=== PATIENT | female | born 1970 | race African-American/Black ===

== ENCOUNTER 2022-08-25 06:30 | Day surgery (SDC) | payer BC ==
[~2022-08-25] VITALS: Ht 170.2 cm; Wt 110.2 kg
[~2022-08-25 06:30] MED LIST: AUGMENTIN875TAB OR; DIFLUCAN150 MG OR; EFFEXOR75 MG OR; FERROUS SULFAT325 MG PO; IBUPROFEN600 MG PO; LORTAB 5 OR; LORTAB 7.5-3251 TAB PO; MEDDOSEPAK OR; METFORMIN HCL500 M1 PO; NAPROSYN500 MG OR; NO; OMEPRAZOLE DR40 MG PO; THERAFL OR; VITAMIN B-225 MG PO; ZOCOR20 M1 PO
[2022-08-25 08:40] VITALS: BP 147/89
== END 2022-08-25 08:47 | disposition home or self-care (01) | DRG 951 ==
LOC: ENDO 06:30
PROVIDERS: ATTEND Surgery
PROC: 0DBL8ZX Excision of Transverse Colon, Via Natural or Artificial Opening Endoscopic, Diagnostic (ICD-10-PCS; principal; 2022-08-25)
DX: Z12.11 Encounter for screening for malignant neoplasm of colon (principal); D12.3 Benign neoplasm of transverse colon; K64.8 Other hemorrhoids; E11.9 Type 2 diabetes mellitus without complications; K21.9 Gastro-esophageal reflux disease without esophagitis; Z79.84 Long term (current) use of oral hypoglycemic drugs

== ENCOUNTER 2023-11-25 09:19 | Emergency (ER) | payer BC ==
[2023-11-25] VITALS (14 sets, daily range): BP systolic 106–176; BP diastolic 66–125
[~2023-11-25] VITALS: Ht 170.2 cm; Wt 110.2 kg
[2023-11-25] MEDS ORDERED: BUPIVACAINE HCL PF 0.5 % 50 MG/10 ML SDV IJ ONE (09:30)
[2023-11-25] MEDS ORDERED: DOXYCYCLINE100 MG PO (09:32)
[2023-11-25] MEDS ORDERED: Diph, Acellular Pertussis, Tet 0.5 ML/VIAL (Tdap) SDV IM ONE (12:15)
== END 2023-11-25 12:30 | disposition home or self-care (01) | DRG 603 ==
LOC: ED 09:19
PROC: 0H9FXZZ Drainage of Right Hand Skin, External Approach (ICD-10-PCS; principal; 2023-11-25)
DX: L03.011 Cellulitis of right finger (principal)

== ENCOUNTER 2024-05-12 21:23 | Emergency (ER) | payer BC ==
[~2024-05-12] VITALS: Ht 170.2 cm; Wt 111.0 kg
[~2024-05-12 21:23] MED LIST changes: +DOXYCYCLINE100 MG PO
[2024-05-12 21:37] VITALS: BP 147/75
[2024-05-12] MEDS ORDERED: KETOROLAC TROMETHAMINE 30 MG/ML SDV IV ONE (21:40)
[2024-05-12 22:15] LABS: BASO% 0.1 % (0-3); EOS% 0.2 % (0-8); HEMATOCRIT 41.3 % (37.0-47.0); HEMOGLOBIN 12.5 g/dl (12.0-16.0); IMMATURE GRANULOCYTES 0.1 % (0.0-5.0); LYMPH% 8.7 % (15-41); MEAN CELL VOLUME 84.6 fL CALC (80.0-100.0); MEAN CORPUSCULAR HGB 25.6 pG CALC (26.0-32.0); MEAN CORPUSCULAR HGB CONC 30.3 g/dL CAL (32.0-36.0); MONO% 3.9 % (2-13); NEUT# 9.45 thou/uL (2.00-7.15); RED BLOOD COUNT 4.88 mill/uL (4.20-5.60); RED CELL DISTRI WIDTH 14.4 % (11.5-15.5)
[2024-05-12 22:26] LABS: ALBUMIN 4.4 g/dL (3.2-5.0); BILIRUBIN, TOTAL 0.4 mg/dL (0.02-1.3); CREATININE 0.6 mg/dL (0.5-1.0); POTASSIUM 3.6 mmol/l (3.5-5.1); TOTAL PROTEIN 7.9 g/dL (6.3-8.2)
[2024-05-12 22:46] VITALS: BP 151/71
[2024-05-12 22:56] LABS: URINE BILIRUBIN - DIPSTICK Negative (NEGATIVE); URINE BLOOD DIPSTICK Moderate (NEGATIVE); URINE GLUCOSE - DIPSTICK >=1000 mg/dL (NEGATIVE); URINE KETONE Trace mg/dL (NEGATIVE); URINE LEUK ESTERASE Negative (NEGATIVE); URINE NITRITE - DIPSTICK Negative (Negative); URINE PROTEIN - DIPSTICK Negative (NEG-TRACE)
[2024-05-12 22:58] LABS: URINE COLOR Yellow
[2024-05-12 23:01] VITALS: BP 147/68
[2024-05-12 23:02] LABS: URINE RBC 25-50 RBC/hpf (0-5); URINE SQUAMOUS EPITHELIAL CELL FEW EPI/hpf (0-FEW); URINE WBC 0-2 WBC/hpf (0-5)
[2024-05-12 23:31] VITALS: BP 155/70
[2024-05-12 23:39] VITALS: BP 126/77
[2024-05-12 23:41] VITALS: BP 126/77
== END 2024-05-12 23:42 | disposition home or self-care (01) | DRG 195 ==
LOC: ED 21:23
PROVIDERS: Family Medicine
DX: J10.1 Influenza due to other identified influenza virus with other respiratory manifestations (principal); D25.9 Leiomyoma of uterus, unspecified; E11.9 Type 2 diabetes mellitus without complications; Z79.84 Long term (current) use of oral hypoglycemic drugs; Z20.822 Contact with and (suspected) exposure to COVID-19